=== PATIENT | male | born 1955 ===

== ENCOUNTER → 2018-06-08 | Outpatient (CLI) | payer OTHER | END | disposition home or self-care (01) | LOC: NUCLEAR 09:00 | DX: I87.2 Venous insufficiency (chronic) (peripheral) (principal) ==

== ENCOUNTER 2018-06-11 09:06 | Outpatient (CLI) | payer OTHER | END 2018-06-11 09:14 | disposition home or self-care (01) | LOC: NUCLEAR 09:06 | DX: I73.9 Peripheral vascular disease, unspecified (principal) ==

== ENCOUNTER 2020-10-23 08:09 | Outpatient (CLI) | payer OTHER | END 2020-10-23 08:24 | disposition home or self-care (01) | LOC: RX STUDY 08:09 | PROVIDERS: ATTEND Internal Medicine Cardiovascular Disease | DX: R10.84 Generalized abdominal pain (principal); K44.9 Diaphragmatic hernia without obstruction or gangrene ==

== ENCOUNTER 2021-01-09 13:45 | Outpatient (CLI) | payer OTHER | END 2021-01-09 13:54 | disposition home or self-care (01) | LOC: LAB 13:45 | PROVIDERS: ATTEND Radiology Diagnostic Radiology | DX: N20.0 Calculus of kidney (principal) ==

== ENCOUNTER 2021-01-17 09:26 | Outpatient (CLI) | payer OTHER | END 2021-01-17 09:33 | disposition home or self-care (01) | LOC: TOM 09:26 | PROVIDERS: ATTEND Internal Medicine Gastroenterology | DX: R10.84 Generalized abdominal pain (principal) | CPT/HCPCS: 74177; Q9965 ==

== ENCOUNTER 2021-12-13 10:40 | Outpatient (CLI) | payer OTHER | END 2021-12-13 10:41 | disposition home or self-care (01) | LOC: RAD 10:40 | PROVIDERS: ATTEND Ophthalmology | DX: Z98.41 Cataract extraction status, right eye (principal); H25.011 Cortical age-related cataract, right eye ==

== ENCOUNTER 2021-12-26 11:58 | Outpatient (CLI) | payer OTHER | END 2021-12-26 14:42 | disposition home or self-care (01) | LOC: EKG 11:58 | PROVIDERS: ATTEND Internal Medicine Cardiovascular Disease | DX: I10 Essential (primary) hypertension (principal) ==

== ENCOUNTER → 2024-04-20 14:20 | Outpatient (CLI) | payer OTHER | END | disposition home or self-care (01) | LOC: EKG 14:20 | PROVIDERS: ATTEND Internal Medicine Cardiovascular Disease | DX: I10 Essential (primary) hypertension (principal) ==